=== PATIENT | female | born 1950 | race Caucasian/White ===

== ENCOUNTER 2023-06-26 09:09 | Day surgery (SDC) | payer OTHER ==
[~2023-06-26] VITALS: Ht 154.9 cm; Wt 63.0 kg
[~2023-06-26 09:09] MED LIST: NS 1,000 ML IV ONE
[2023-06-26] MEDS ORDERED: propofoL 200 MG/20 ML VIAL As Ordered ONE (10:03)
[2023-06-26] MEDS ORDERED: LIDOCAINE 2% 100MG/5ML SDV (FOR ANES.) As Ordered ONE (10:03)
[2023-06-26 10:06] VITALS: TEMP 98.3
[2023-06-26 10:11] VITALS: BP 123/70; O2SAT 99
== END 2023-06-26 10:11 | disposition home or self-care (01) ==
LOC: M OPP 09:09
PROVIDERS: ATTEND Surgery
DX: Z12.11 Encounter for screening for malignant neoplasm of colon (principal); Z80.0 Family history of malignant neoplasm of digestive organs; K64.9 Unspecified hemorrhoids